=== PATIENT | female | born 1955 | race Caucasian/White ===

== ENCOUNTER 2017-04-26 07:12 | Day surgery (SDC) | payer OTHER ==
[2017-04-26] MEDS ORDERED: Lactated Ringers 1,000 ML IV SCH (07:15)
[2017-04-26] MEDS ORDERED: Sodium Chloride 0.9% 10 ML Syringe FLUSH PRN (07:15)
[2017-04-26] MEDS ORDERED: Midazolam 1 MG/ML 2 ML SDV IV ONE (08:30)
[2017-04-26] MEDS ORDERED: Propofol 200 MG/20 ML SDV IV ONE (08:30)
--- NOTE | 2017-04-26 09:01 | PCM.OPNOTE ---
- General Post-Op/Procedure Note Date of Surgery/Procedure: 04/26/17 Operative Procedure(s): c scope with bx Findings: hyperplastic rectal polyps x2 Pre Op Diagnosis: colon cancer screening Post-Op Diagnosis: rectal polps x2 Anesthesia Technique: MAC Primary Surgeon: Zenon Osborne Anesthesia Provider: Masha Marie Pathology: rectal polyp x2 Complications: None Condition: Good
[2017-04-26 10:24] VITALS: BP 117/85
--- NOTE | 2017-04-26 11:23 | OR ---
DATE OF OPERATION: 04/26/2017 SURGEON: Zenon Osborne MD PROCEDURE PERFORMED: Colonoscopy with cold forceps biopsy. PREOPERATIVE DIAGNOSIS: Need for screening colonoscopy. POSTOPERATIVE DIAGNOSIS: Hyperplastic rectal polyps. INDICATIONS FOR PROCEDURE: This is a 61-year-old white female who is referred for screening colonoscopy. Does have a family history of colon cancer with her brother. Offered and accepted same. DESCRIPTION OF OPERATION: After an excellent IV sedation was administered, digital rectal exam was performed. No marked abnormality was noted. Flexible colonoscope was inserted and advanced to the cecum without difficulty. The prep was excellent. The following findings were noted. Ascending colon, unremarkable. Transverse colon, unremarkable. Descending colon, unremarkable. Sigmoid, unremarkable. Rectum, 2 hyperplastic appearing lesions, biopsied with cold biopsy forceps and sent for permanent. Colon was deflated. The scope was removed. Results by letter. Followup colonoscopy on the basis of the pathology report. /[id number] /MODL
== END 2017-04-26 10:15 | disposition home or self-care (01) ==
LOC: FB.SDS 07:12
PROVIDERS: ATTEND Surgery
DX: Z12.11 Encounter for screening for malignant neoplasm of colon (principal); K62.1 Rectal polyp; I25.84 Coronary atherosclerosis due to calcified coronary lesion; F41.9 Anxiety disorder, unspecified; J44.9 Chronic obstructive pulmonary disease, unspecified; Z88.1 Allergy status to other antibiotic agents; Z79.82 Long term (current) use of aspirin; Z79.899 Other long term (current) drug therapy; Z87.891 Personal history of nicotine dependence
CPT/HCPCS: 45380; 88305; J2250; J2704; J7120

== ENCOUNTER 2018-09-17 07:30 | Day surgery (SDC) | payer OTHER ==
[~2018-09-17 07:30] MED LIST: Lactated Ringers 1,000 ML IV SCH
[2018-09-17] MEDS ORDERED: Lidocaine 2% 100 MG/5 ML Syringe IVPUSH ONE (07:31)
[2018-09-17] MEDS ORDERED: Propofol 200 MG/20 ML SDV IV ONE (07:31)
--- NOTE | 2018-09-17 09:01 | PCM.OPNOTE ---
- General Post-Op/Procedure Note Date of Surgery/Procedure: 09/17/18 Operative Procedure(s): egd with bx Findings: gastritis irregular z line Pre Op Diagnosis: dysphagia Post-Op Diagnosis: irregular z line. gastritis Anesthesia Technique: MAC Primary Surgeon: Zenon Osborne Anesthesia Provider: Ceferino Sprague ([facility]) Pathology: stomach and distal esophagus Complications: None Condition: Good Free Text/Narrative:: see dictation
[2018-09-17 09:52] VITALS: BP 105/66
--- NOTE | 2018-09-17 14:51 | OR ---
DATE OF OPERATION: 09/17/2018 SURGEON: Zenon Osborne MD PROCEDURE PERFORMED: Esophagogastroduodenoscopy with cold forceps biopsy. PREOPERATIVE DIAGNOSIS: History of dysphagia. POSTOPERATIVE DIAGNOSIS: Mild gastritis as well as an irregular Z-line. INDICATIONS FOR PROCEDURE: This is a 63-year-old white female who is referred with the above-mentioned complaints. She was offered and accepted an esophagogastroduodenoscopy. DESCRIPTION OF OPERATION: After an excellent sedation was administered, the bite block was inserted. The flexible endoscope was passed without difficulty down the patient's esophagus into the stomach. Stomach was insufflated. Scope passed through the pylorus, second portion of the duodenum and slowly withdrawn. The following findings were noted. Duodenum was unremarkable. Stomach demonstrated some diffuse gastritis. Multiple biopsies were taken. Esophagus, irregular Z-line with a small island of what appeared to be intestinal metaplasia. This area was biopsied and [employer] circumferential biopsies were taken as well. There was no marked erythema to suggest esophagitis; however, this diagnosis cannot be excluded given the findings. The remainder of the esophageal exam was unremarkable. The patient tolerated the procedure and was taken to recovery. Results by letter. /[id number] /TATIANA
== END 2018-09-17 09:45 | disposition home or self-care (01) ==
LOC: FB.SDS 07:30
PROVIDERS: ATTEND Surgery
DX: K21.0 Gastro-esophageal reflux disease with esophagitis (principal); K31.89 Other diseases of stomach and duodenum; K58.9 Irritable bowel syndrome, unspecified; I25.10 Atherosclerotic heart disease of native coronary artery without angina pectoris; E78.2 Mixed hyperlipidemia; J43.1 Panlobular emphysema; F41.9 Anxiety disorder, unspecified; Z88.1 Allergy status to other antibiotic agents; Z87.891 Personal history of nicotine dependence; Z79.82 Long term (current) use of aspirin; Z79.899 Other long term (current) drug therapy
CPT/HCPCS: 88305; 88313; 88342; J2001; J2704; J7120

== ENCOUNTER 2025-03-08 10:26 | Emergency (ER) | payer BC, MEDICARE ==
[2025-03-08] MEDS: Heparin Sodium 5,000 Units/ML Vial IVPUSH ONE (10:48)
[2025-03-08 10:51] LABS: BASOPHILS ABSOLUTE AUTO 0.1 x10-3/uL (0.0-0.1); BASOPHILS PERCENT AUTO 0.9 % (0.2-1.5); EOSINOPHILS ABSOLUTE AUTO 0.1 x10-3/uL (0.0-0.8); EOSINOPHILS PERCENT AUTO 1.8 % (0.6-8.1); LYMPHOCYTES ABSOLUTE AUTO 1.8 x10-3/uL (1.0-4.4); LYMPHOCYTES PERCENT AUTO 29.2 % (18.4-52.1); MEAN PLATELET VOLUME 7.9 fL (7.1-12.4); MONOCYTES ABSOLUTE AUTO 0.5 x10-3/uL (0.3-1.0); MONOCYTES PERCENT AUTO 7.7 % (4.4-15.7); NEUTROPHILS ABSOLUTE AUTO 3.7 x10-3/uL (1.5-6.3); NEUTROPHILS PERCENT AUTO 60.4 % (30.8-76.2); PLATELET COUNT,PLT 306 x10(3)uL (151-488); RED BLOOD CELL COUNT 4.30 x10(6)uL (3.60-5.20); RED CELL DISTRIBUTION WIDTH 14.6 % (12.3-16.5); WHITE BLOOD CELL COUNT,WBC 6.2 x10-3/uL (3.0-10.3)
[2025-03-08 10:54] LABS: BLOOD UREA NITROGEN,BUN 18 mg/dL (7-18); CARBON DIOXIDE,CO2 30 mmol/L (21-32); CHLORIDE,CL 101 mmol/L (100-110); CREATININE 0.8 mg/dL (0.55-1.02); EST CRCL DRUG DOSING (CG) 60.38 mL/min; ESTIMATED GFR 79 mL/min (>60); GLUCOSE RANDOM 109 mg/dL (80-116); POTASSIUM,K 3.6 mmol/L (3.5-5.3); SODIUM,NA 139 mmol/L (135-145)
[2025-03-08] MEDS: Heparin Sodium/0.45% NaCl 25,000 UNITS/500 ML BAG IV SCH (10:55)
[2025-03-08] MEDS: fentaNYL 100 MCG/2 ML SDV IVPUSH ONE (10:56)
[2025-03-08 10:58] VITALS: BP 156/80; PULSE 80
[2025-03-08 11:00] LABS: A/G RATIO 1.3; ALANINE AMINOTRANSFERASE,ALT 19 U/L (12-36); ASPARTATE AMNIOTRANSFERASE,AST 18 IU/L (5-25); BILIRUBIN TOTAL 0.3 mg/dL (0.1-1.3); PROTEIN TOTAL,TP 7.0 g/dL (6.0-8.0)
== END 2025-03-08 11:00 ==
LOC: FB.ED 10:26
DX: I21.3 ST elevation (STEMI) myocardial infarction of unspecified site (principal); I25.10 Atherosclerotic heart disease of native coronary artery without angina pectoris; E78.00 Pure hypercholesterolemia, unspecified; K21.9 Gastro-esophageal reflux disease without esophagitis; J44.9 Chronic obstructive pulmonary disease, unspecified; Z79.899 Other long term (current) drug therapy; Z88.1 Allergy status to other antibiotic agents
CPT/HCPCS: 71045; 80053; 84484; 85025; 85730; 93005; 96365; 96375; 99285; A9270; J1644; J3010; 93010